=== PATIENT | female | born 1970 | race African-American/Black ===

== ENCOUNTER 2024-12-19 10:06 | Observation (INO) | payer SELFPAY ==
[2024-12-19 10:24] LABS: Absolute Lymphocytes (CBC) 1.9 K/uL (0.7-4.9); Hematocrit 42.1 % (36.0-45.0); Hemoglobin 13.7 g/dL (12.0-15.0); MCH 28.3 pg (27.0-35.0); MCHC 32.6 g/dL (32.0-36.0); MCV 86.9 fL (80-100); MPV 8.9 fL (7.6-11.3); Nucleated RBC Absolute Count 0.0 (0-0); Nucleated Red Blood Cells % 0.0 % (0-0); RBC Red Blood Cell Count 4.85 M/uL (3.86-4.86); White Blood Count 10.70 thou/uL (4.3-10.9)
[2024-12-19] MEDS ORDERED: ONDANSETRON 4 MG/2 ML VIAL ONE ×2 (10:25→10:58)
[2024-12-19] MEDS ORDERED: NA CHLORIDE 0.9% 1,000 ML ONE (10:25)
[2024-12-19] MEDS ORDERED: KETOROLAC 30 MG/ML INJ ONE (10:25)
[2024-12-19] MEDS ORDERED: MORPHINE 4 MG/ML SYR ONE ×3 (10:25→12:36)
[2024-12-19 10:45] LABS: ALT/SGPT 25 U/L (13-56); Albumin 4.3 g/dL (3.4-5.0); Albumin/Globulin Ratio 1.3 (1.1-1.8); Alkaline Phosphatase 76 U/L (45-117); Anion Gap 11.2 mEq/L (5.0-15.0); BUN Blood Urea Nitrogen 12 mg/dL (7-18); Globulin 3.3 g/dL (2.3-3.5); Glucose Level 113 mg/dL (74-106); Lipase 29 U/L (13-75); Potassium 3.2 mEq/L (3.5-5.1)
[2024-12-19 10:48] LABS: AST/SGOT < 10 U/L (15-37)
--- NOTE | 2024-12-19 11:10 | RAD REPORT ---
EXAMINATION: CT Abdomen Pelvis W Contrast CLINICAL INDICATION: Female, 54 years old. back pain;Abd pain TECHNIQUE: CT abdomen and pelvis was performed, after the administration of IV contrast, as per [facility] protocol. Axial, sagittal and coronal reconstructions were obtained. One or more of the following dose reduction techniques were used: Automated exposure control, adjustment of the mA and k V according to patient size, and iterative reconstruction. Unless otherwise specified, incidental findings do not require dedicated imaging follow-up. COMPARISON: No prior exam. FINDINGS: LOWER CHEST: The visualized lung bases are clear. LIVER: Normal in size and contour. No focal lesion. BILIARY SYSTEM: Marked distention of the gallbladder. Mild adjacent fat stranding at the neck and at the fundus. No other suspicious abnormalities. SPLEEN: Normal size. No focal lesion. PANCREAS: No mass, ductal dilation, or racheal-pancreatic fluid. ADRENALS: Normal; no mass. KIDNEYS: Normal size and contour. No hydronephrosis. URINARY BLADDER: Unremarkable. GASTROINTESTINAL TRACT: No evidence of free air, significant intra-abdominal free fluid, bowel obstru ction or abscess. APPENDIX: Normal appendix. LYMPH NODES: No lymphadenopathy. MUSCULOSKELETAL: No acute or suspicious osseous abnormality. ADDITIONAL FINDINGS: None. IMPRESSION: Marked distention of the gallbladder. Mild adjacent fat stranding at the neck and at the fundus. Plea se correlate clinically for acute cholecystitis, and consider additional evaluation by ultrasound if clinically appropriate.
[2024-12-19 12:16] LABS: Urine Microscopic Reflex YN NO UMIC
[2024-12-19] MEDS ORDERED: METOCLOPRAMIDE 10 MG/2mL INJ ONE (12:36)
--- NOTE | 2024-12-19 12:37 | RAD REPORT ---
EXAMINATION: US Abdomen Exam Limited CLINICAL HISTORY: HS MAIN N abnormal CT;Abd pain Bed Name: 5 COMPARISON: CT abdomen and pelvis same day TECHNIQUE: Limited upper abdominal grayscale and color flow sonographic images. FINDINGS: Gallbladder: Distended measuring 15 cm in long axis. Normal wall thickness, 2 mm. Echogenic 1.7 cm ca lculus with mild shadowing at the neck. Lobulated sludge versus small polyp near the fundus. Evaluation for sonographic Kramer's sign is limited as patient was medicated for pain. Bile ducts: No intrahepatic or extrahepatic biliary dilatation. Common bile duct measures 8 mm. Liver: Visualized portions of the liver demonstrate normal echogenicity with no suspicious findings. Fluid: No ascites. IMPRESSION: Distended gallbladder with sludge and 1.7 cm calculus near the neck. No other discrete sonographic fi ndings to suggest acute cholecystitis. Please correlate clinically. Prominent common bile duct up to 8 mm. Correlation with serum bilirubin levels is recommended.
--- NOTE | 2024-12-19 12:43 | EDPHYS ---
Physician Documentation [facility] Name: Vito Thomas Age: 54 yrs Sex: Female : 1970 Arrival Date: 12/19/2024 Time: 10:06 Bed 5 Private MD: ED Physician Earlene Dang HPI: 12/19 10:18 This 54 yrs old Female presents to ER via Unassigned with complaints of Low Back Pain. sp3 10:18 54-year-old female with history of lumbar disc disease, C-sections x 3, now presents to [facility] the ED with chief complaint low back pain rating around to the right lower quadrant. Symptoms been going on for the last 2 days now worsening. She is not on any pain medications and has not taken any kapx-iki-vghvtsc medications. She states she sees a chiropractor and [place]. No recent adjustments. She denies any other symptoms including fever, headache, neck pain, chest pain, shortness of breath, upper back pain, dysuria, urinary frequency, history of kidney stone, gross visualized hematuria, vomiting, diarrhea, PARIMUTUEL TICKET CHECKER symptoms, constipation, bloating, or any other signs or symptoms on ROS at this time.. 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 - Infectious Disease History:: Denies. - Social history:: Smoking status: unknown. ROS: 10:20 Constitutional: Negative for fever, chills, and weight loss, Eyes: Negative for injury, sp3 pain, redness, and discharge, ENT: Negative for injury, pain, and discharge, Neck: Negative for injury, pain, and swelling, Cardiovascular: Negative for chest pain, palpitations, and edema, Respiratory: Negative for shortness of breath, cough, wheezing, and pleuritic chest pain, : Negative for injury, bleeding, discharge, and swelling, MS/Extremity: Negative for injury and deformity, Skin: Negative for injury, rash, and discoloration, Neuro: Negative for headache, weakness, numbness, tingling, and seizure, Psych: Negative for depression, anxiety, suicide ideation, homicidal ideation, and hallucinations, Allergy/Immunology: Negative for hives, rash, and allergies, Endocrine: Negative for neck swelling, polydipsia, polyuria, polyphagia, and marked weight changes, 10:20 All other systems are negative, Exam: 10:21 Constitutional: This is a well developed, well nourished patient who is awake, alert, sp3 and in no acute distress. Head/Face: Normocephalic, atraumatic. Eyes: Pupils equal round and reactive to light, extra-ocular motions intact. Lids and lashes normal. Conjunctiva and sclera are non-icteric and not injected. Cornea within normal limits. Periorbital areas with no swelling, redness, or edema. Neck: Trachea midline, no thyromegaly or masses palpated, and no cervical lymphadenopathy. Supple, full range of motion without nuchal rigidity, or vertebral point tenderness. No Meningismus. Chest/axilla: Normal chest wall appearance and motion. Nontender with no deformity. No lesions are appreciated. Cardiovascular: Regular rate and rhythm with a normal S1 and S2. No gallops, murmurs, or rubs. Normal PMI, no JVD. No pulse deficits. Respiratory: Lungs have equal breath sounds bilaterally, clear to auscultation and percussion. No rales, rhonchi or wheezes noted. No increased work of breathing, no retractions or nasal flaring. Skin: Warm, dry with normal turgor. Normal color with no rashes, no lesions, and no evidence of cellulitis. MS/ Extremity: Pulses equal, no cyanosis. Neurovascular intact. Full, normal range of motion. Neuro: Awake and alert, GCS 15, oriented to person, place, time, and situation. Cranial nerves II-XII grossly intact. Motor strength 5/5 in all extremities. Sensory grossly intact. Cerebellar exam normal. Normal gait. Psych: Awake, alert, with orientation to person, place and time. Behavior, mood, and affect are within normal limits. 10:21 Back: Patient has pain to palpation in the lower musculature particular on the right side. No numbness or tingling distally and normal neurological exam distally bilateral lower extremities., 10:21 Abdomen/GI: Patient has pain to palpation right lower quadrant as well. No peritoneal sp3 signs, rebound or guarding., Vital Signs: 10:09 BP 150 / 114; Pulse 86; Resp 18 S; Temp 98(O); Pulse Ox 100% on R/A; Weight 106.59 kg aa5 (R); Height 5 ft. 9 in. (R); 11:03 BP 170 / 80; Pulse 82; Resp 18 S; Pulse Ox 98% on R/A; aa5 12:39 BP 155 / 88; Pulse 70; Resp 18 S; Pulse Ox 97% on R/A; Pain 7/10; aa5 14:54 BP 145 / 82; Pulse 86; Resp 17; Pulse Ox 100% ; ap3 10:09 Body Mass Index 34.70 (106.59 kg, 175.26 cm) aa5 12:39 Pain Scale: Adult aa5 MDM: 10:10 Medical Screening Exam initiated sp3 10:22 Data reviewed: vital signs, nurses notes, lab test result(s), radiologic studies. ED sp3 course: 54-year-old female with low back pain and right lower quadrant abdominal pain. Differential diagnosis includes musculoskeletal pain, lumbar radiculopathy/disc disease, appendicitis, adhesions, colitis, UTI/pyelonephritis spectrum, kidney stone/ureterolithiasis spectrum, PARIMUTUEL TICKET CHECKER pathology, among others. Workup will include CT scan of the abdomen pelvis with IV contrast, general labs, UA and treatment with morphine, ketorolac and ondansetron IV. Disposition pending workup and patient course.. 12:41 ED course: Ultrasound demonstrates 1.7 cm stone in the gallbladder neck coupled with sp3 sludge. LFTs are all normal. Will admit to hospitalist and Dr. Lopez to operate tomorrow after discussion with him and surgeon on-call.. 12/19 10:13 Order name: CBC with Diff; Complete Time: 11:28 sp3 12/19 10:13 Order name: CMP; Complete Time: 11:28 sp3 12/19 10:13 Order name: Lipase; Complete Time: 11:28 sp3 12/19 10:13 Order name: UA Rfx Leroy Cult if indicated; Complete Time: 12:20 sp3 12/19 13:43 Order name: CBC with Automated Diff EDMS 12/19 13:43 Order name: CBC with Automated Diff EDMS 12/19 13:43 Order name: CBC with Automated Diff EDMS 12/19 13:43 Order name: CBC with Automated Diff EDMS 12/19 13:43 Order name: Comprehensive Metabolic Panel EDMS 12/19 13:43 Order name: Comprehensive Metabolic Panel EDMS 12/19 13:43 Order name: Comprehensive Metabolic Panel EDMS 12/19 13:43 Order name: Comprehensive Metabolic Panel EDMS 12/19 13:43 Order name: Magnesium EDMS 12/19 13:43 Order name: Magnesium EDMS 12/19 13:43 Order name: Magnesium EDMS 12/19 13:43 Order name: Magnesium EDMS 12/19 13:43 Order name: Phosphorus EDMS 12/19 13:43 Order name: Phosphorus EDMS 12/19 13:43 Order name: Phosphorus EDMS 12/19 13:43 Order name: Phosphorus EDMS 12/19 13:57 Order name: PREGU eb 12/19 14:26 Order name: Test, Urine EDMS 12/19 10:13 Order name: CT Abd/Pelvis - IV Contrast Only; Complete Time: 11:28 sp3 12/19 11:29 Order name: US Abdomen Limited; Complete Time: 12:38 sp3 12/19 13:43 Order name: CONS Physician Consult EDMS 12/19 10:13 Order name: IV Saline Lock; Complete Time: 10:19 sp3 12/19 10:13 Order name: Labs collected and sent; Complete Time: 10:19 sp3 12/19 10:13 Order name: NPO; Complete Time: 10:18 sp3 12/19 11:30 Order name: Cath: Cath UA; Complete Time: 12:05 sp3 Administered Medications: 10:32 Drug: Ondansetron IVP 4 mg IVP once; over 2 minutes Route: IVP; Site: right antecubital;ap3 10:54 Follow up: Response: Pt vomited in CT aa5 10:32 Drug: NS 0.9% IV 1000 ml IV at 1 bolus Per protocol; to be given as a bolus over 60 ap3 minutes Route: IV; Rate: 1 bolus; Site: right antecubital; 14:53 Follow up: IV Status: Completed infusion ap3 10:33 Drug: TORadol - Ketorolac IVP 15 mg IVP once Route: IVP; Site: right antecubital; ap3 10:54 Follow up: Response: No adverse reaction aa5 10:33 Drug: morphine IVP or IV 4 mg IVP once over 4 mins Route: IVP; Infused Over: 4 mins; ap3 Site: right antecubital; 10:54 Follow up: Response: No adverse reaction aa5 11:03 Drug: morphine IVP or IV 4 mg IVP once over 4 mins Route: IVP; Infused Over: 4 mins; aa5 Site: right antecubital; 12:05 Follow up: Response: No adverse reaction; Pain is decreased ap3 11:03 Drug: Ondansetron IVP 4 mg IVP once; over 2 minutes Route: IVP; Site: right antecubital;aa5 12:06 Follow up: Response: No adverse reaction; Nausea is decreased ap3 12:40 Drug: metoCLOPramide IVP 10 mg IVP once; over 1 to 2 minutes Route: IVP; Site: right aa5 antecubital; 14:53 Follow up: Response: No adverse reaction ap3 12:40 Drug: morphine IVP or IV 4 mg IVP once over 4 mins Route: IVP; Infused Over: 4 mins; aa5 Site: right antecubital; 14:53 Follow up: Response: No adverse reaction; Pain is decreased ap3 13:47 Drug: Piperacillin-Tazobactam IVPB 3.375 grams IVPB once over 60 mins; (mix in NS 100 ap3 mL) Route: IVPB; Infused Over: 60 mins; Site: right antecubital; 14:53 Follow up: IV Status: Completed infusion ap3 Disposition Summary: 12/19/24 12:42 Hospitalization Ordered Notes: Hospitalization Status: Observation sp3 Provider: Didi Gregory sp3 [facility] sp3 Condition: Stable sp3 Problem: new sp3 Symptoms: have worsened sp3 Bed/Room Type: Standard sp3 Room Assignment: 228(12/19/24 13:50) eb Diagnosis - Biliary colic, abdominal pain, early cholecystitis sp3 Forms: - Medication Reconciliation Form sp3 - SBAR form sp3 - Leadership Thank You Letter sp3 Signatures: Dispatcher [employer] EDTory Kaufman RN RN aa5 Hoa Preston RN RN ap3 Charlene Chisholm Setul, MD MD sp3 Corrections: (The following items were deleted from the chart) 10:14 10:14 Abdomen Pelvis W Con+CT.RAD.BRZ ordered. EDMS EDMS 11:30 11:30 Abdomen Limited+US.RAD.BRZ ordered. EDMS EDMS 13:50 12:42 sp3 eb
--- NOTE | 2024-12-19 12:43 | ER ---
Nurse's Notes [facility] Name: Vito Thomas Age: 54 yrs Sex: Female : 1970 Arrival Date: 12/19/2024 Time: 10:06 Bed 5 Private MD: Diagnosis: Biliary colic, abdominal pain, early cholecystitis Presentation: 12/19 10:09 Chief complaint: EMS states: low back pain radiating down to RLQ that began today. Pt aa5 crying, moaning, and restless during triage. 10:09 Coronavirus screen: At this time, the client does not indicate any symptoms associated aa5 with coronavirus-19. Ebola Screen: Patient denies travel to an Ebola-affected area in the 21 days before illness onset. Initial Sepsis Screen: Does the patient meet any 2 criteria? No. Patient's initial sepsis screen is negative. Does the patient have a suspected source of infection? No. Patient's initial sepsis screen is negative. Risk Assessment: Do you want to hurt yourself or someone else? Patient reports no desire to harm self or others. Onset of symptoms was December 19, 2024. 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 - Infectious Disease History:: Denies. - Social history:: Smoking status: unknown. Screenin:10 [facility] ED Fall Risk Assessment (Adult) History of falling in the last 3 months, aa5 including since admission No falls in past 3 months (0 pts) Confusion or Disorientation No (0 pts) Intoxicated or Sedated No (0 pts) Impaired Gait No (0 pts) Mobility Assist Device Used No (0 pt) Altered Elimination No (0 pt) Score/Fall Risk Level 0 - 2 = Low Risk Oriented to surroundings, Maintained a safe environment, Educated pt \T\ family on fall prevention, incl call for assistance when getting out of bed, Assessed \T\ reinforced patient's understanding of fall precautions. Abuse screen: Denies threats or abuse. Nutritional screening: No deficits noted. Tuberculosis screening: No symptoms or risk factors identified. Assessment: 10:10 General: Appears uncomfortable, Behavior is cooperative, restless. Pain: Complains of aa5 pain in low back area Pain radiates to right lower quadrant Pain currently is 6 out of 10 on a pain scale. Quality of pain is described as sharp, Pain began this morning Is continuous, Aggravated by palpation to lower back. Neuro: Level of Consciousness is awake, alert, obeys commands, Oriented to person, place, time, situation. Cardiovascular: Patient's skin is warm and dry. Respiratory: Airway is patent Respiratory effort is even, unlabored, Respiratory pattern is regular, symmetrical. GI: Abdomen is round non-distended, Bowel sounds present X 4 quads. Abd is soft and non tender X 4 quads. Patient currently denies nausea, vomiting. : No signs and/or symptoms were reported regarding the genitourinary system. EENT: No signs and/or symptoms were reported regarding the EENT system. Derm: Skin is dry, Skin is normal, Skin temperature is warm. Musculoskeletal: Range of motion: intact in all extremities. 10:52 Reassessment: Pt in CT . aa5 11:00 General: Appears appears more comfortable/calm than previous assessment, pt moaning aa5 quietly. . Pain: Pain currently is 9 out of 10 on a pain scale. Neuro: Level of Consciousness is awake, alert, obeys commands, Oriented to person, place, time, situation. Respiratory: Airway is patent Respiratory effort is even, unlabored, Respiratory pattern is regular, symmetrical. GI: Reports nausea. Derm: Skin is dry, Skin is normal, Skin temperature is warm. 11:25 Reassessment: Patient states feeling better. Patient states symptoms have improved. aa5 Reassessment: Pt now resting in bed with eyes closed, respirations are even and unlabored. . 12:39 Reassessment: Pt c/o increased pain and nausea, MD was notified. . Pain: Pain currently aa5 is 7 out of 10 on a pain scale. 13:30 Reassessment: Patient states feeling better. Patient states symptoms have improved. aa5 Pain: Pain currently is 2 out of 10 on a pain scale. 13:30 Neuro: Level of Consciousness is awake, alert, obeys commands, Oriented to person, aa5 place, time, situation. Respiratory: Airway is patent Respiratory effort is even, unlabored, Respiratory pattern is regular, symmetrical. Derm: Skin is dry, Skin is normal, Skin temperature is warm. Vital Signs: 10:09 BP 150 / 114; Pulse 86; Resp 18 S; Temp 98(O); Pulse Ox 100% on R/A; Weight 106.59 kg aa5 (R); Height 5 ft. 9 in. (R); 11:03 BP 170 / 80; Pulse 82; Resp 18 S; Pulse Ox 98% on R/A; aa5 12:39 BP 155 / 88; Pulse 70; Resp 18 S; Pulse Ox 97% on R/A; Pain 7/10; aa5 14:54 BP 145 / 82; Pulse 86; Resp 17; Pulse Ox 100% ; ap3 10:09 Body Mass Index 34.70 (106.59 kg, 175.26 cm) aa5 12:39 Pain Scale: Adult aa5 ED Course: 10:09 Patient arrived in ED. eb 10:09 Earlene Dang MD is Attending Physician. sp3 10:09 Arm band placed on Patient placed in an exam room, on a stretcher. aa5 10:09 Patient has correct armband on for positive identification. Bed in low position. Call aa5 light in reach. Side rails up X2. Pulse ox on. NIBP on. 10:18 Tory Dale, RN is Primary Nurse. aa5 10:19 Initial lab(s) drawn, by tx, sent to lab. Inserted saline lock: 22 gauge in left ap3 antecubital area, using aseptic technique. Blood collected. 10:22 Triage completed. aa5 10:49 CT Abd/Pelvis - IV Contrast Only In Process Unspecified. EDMS 10:53 No provider procedures requiring assistance completed. aa5 12:25 US Abdomen Limited In Process Unspecified. EDMS 12:42 Didi Gregory MD is Hospitalizing Provider. sp3 14:54 Provided Education on: need for admission . ap3 14:54 Patient admitted, IV remains in place. ap3 Administered Medications: 10:32 Drug: Ondansetron IVP 4 mg IVP once; over 2 minutes Route: IVP; Site: right antecubital;ap3 10:54 Follow up: Response: Pt vomited in CT aa5 10:32 Drug: NS 0.9% IV 1000 ml IV at 1 bolus Per protocol; to be given as a bolus over 60 ap3 minutes Route: IV; Rate: 1 bolus; Site: right antecubital; 14:53 Follow up: IV Status: Completed infusion ap3 10:33 Drug: TORadol - Ketorolac IVP 15 mg IVP once Route: IVP; Site: right antecubital; ap3 10:54 Follow up: Response: No adverse reaction aa5 10:33 Drug: morphine IVP or IV 4 mg IVP once over 4 mins Route: IVP; Infused Over: 4 mins; ap3 Site: right antecubital; 10:54 Follow up: Response: No adverse reaction aa5 11:03 Drug: morphine IVP or IV 4 mg IVP once over 4 mins Route: IVP; Infused Over: 4 mins; aa5 Site: right antecubital; 12:05 Follow up: Response: No adverse reaction; Pain is decreased ap3 11:03 Drug: Ondansetron IVP 4 mg IVP once; over 2 minutes Route: IVP; Site: right antecubital;aa5 12:06 Follow up: Response: No adverse reaction; Nausea is decreased ap3 12:40 Drug: metoCLOPramide IVP 10 mg IVP once; over 1 to 2 minutes Route: IVP; Site: right aa5 antecubital; 14:53 Follow up: Response: No adverse reaction ap3 12:40 Drug: morphine IVP or IV 4 mg IVP once over 4 mins Route: IVP; Infused Over: 4 mins; aa5 Site: right antecubital; 14:53 Follow up: Response: No adverse reaction; Pain is decreased ap3 13:47 Drug: Piperacillin-Tazobactam IVPB 3.375 grams IVPB once over 60 mins; (mix in NS 100 ap3 mL) Route: IVPB; Infused Over: 60 mins; Site: right antecubital; 14:53 Follow up: IV Status: Completed infusion ap3 Medication: 10:51 VIS not applicable for this client. aa5 Outcome: 12:42 Decision to Hospitalize by Provider. sp3 14:54 Admitted to Med/surg ap3 14:54 Condition: good 14:54 Discharge instructions given to patient, Instructed on the need for admit, 14:55 Patient left the ED. ap3 Signatures: Dispatcher [employer] EDTory Kaufman RN RN aa5 Hoa Preston RN RN ap3 Charlene Chisholm Setul, MD MD sp3
[2024-12-19] MEDS ORDERED: ACETAMINOPHEN 325 MG TABLET PO PRN (13:34)
[2024-12-19] MEDS ORDERED: NA CHLORIDE 0.9% 100 ML ONE (13:39)
[2024-12-19] MEDS ORDERED: PIPERACIL/TAZO 3.375 GM VIAL IV ONE (13:40)
--- NOTE | 2024-12-19 14:07 | CON ---
Date of Consultation: 12/19/2024 Reason For Consultation: Abdominal pain. History Of Present Illness: The patient is a 54-year-old female who comes in with acute onset of upp er abdominal right-sided pain going to the back associated with nausea and vomiting. No heartburn, b ut there is bloating and belching. No diarrhea. No blood per rectum. She does have some constipati on. No dysuria or hematuria. No sore throat or runny nose. Occasional cough. No fever. No chills . No chest pain. Review of Systems: Otherwise, unremarkable. Pain started after dinner last night. Past Medical History: Chronic back pain. Past Surgical History: x3. Allergies: NO ALLERGIES. Social History: The patient has smoked in the past, does not currently, and denies drinking alcohol. Physical Examination: Vital Signs: Stable. She is afebrile. General: She is awake, alert, oriented x3. Head and Neck: No evidence of icterus. No neck masses. No JVD. Throat clear. Neck is supple. Chest: Clear. Heart: S1, S2. Abdomen: Soft, nondistended. Positive bowel sounds. Positive right upper quadrant tenderness with minimal rebound. No rigidity or guarding. Extremities: Adequately perfused. Nontender. Neuro: Nonfocal. Imaging: Ultrasound of the abdomen reviewed, shows a distended gallbladder with sludge and a 1.7 cm calculus near the neck. Common bile duct is [address] shows marked distention of the gallb ladder, mild adjacent fat stranding at the neck and at the fundus, consider ultrasound. Laboratory Data: White count is 10.7 with a left shift. LFTs, amylase, lipase are within normal [place] its. Assessment: Acute cholecystitis and cholelithiasis. Plan: Admit. NPO after midnight. Clear liquids today. IV antibiotics and to the OR for laparoscop ic cholecystectomy, possible open. The patient understands risks, benefits, alternatives, and agrees to procedure. /MODL Voice ID: [id number] Report ID: [id number]
[2024-12-19 15:11] VITALS: BMI 34.7
[2024-12-19] MEDS: NA CHLORIDE 0.9% 1,000 ML IV SCH (15:19)
[2024-12-19] MEDS: MORPHINE 2 MG/ML SYR IV PRN (15:20)
[2024-12-19] MEDS: PIPER TAZO 3.375 GM in NA CHLORIDE 0.9% 100 ML IV SCH (17:00)
[2024-12-19] MEDS: ONDANSETRON 4 MG/2 ML VIAL IV PRN (17:39)
--- NOTE | 2024-12-19 18:02 | P.HP ---
Certification for Inpatient Patient admitted to: Observation With expected LOS: <2 Midnights Patient will require the following post-hospital care: None Practitioner: I am a practitioner with admitting privileges, knowledge of patient current condition, hospital course, and medical plan of care. Services: Services provided to patient in accordance with Admission requirements found in Title 42 Section 412.3 of the Code of Federal Regulations <Ana Gayle - Last Filed: 12/19/24 17:52> Patient History Date of Service: 12/19/24 Reason for admission: Acute cholecystitis History of Present Illness: Vito Thomas is a 54 year old female with pmhx herniated disc who presents to the ED with lower back pain radiating to abdominal pain and intractable N/V for 2 days. Laboratory evaluation unremarkable. Ultrasound abdomen reports "Distended gallbladder with sludge and 1.7 cm calculus near the neck. No other discrete sonographic findings to suggest acute cholecystitis. Please correlate clinically. Prominent common bile duct up to 8 mm" CT abdomen pelvis reports"Marked distention of the gallbladder. Mild adjacent fat stranding at the neck and at the fundus. Please correlate clinically for acute cholecystitis." Vito will be admitted to the hospitalist service for further evaluation and treatment of acute cholecystitis. Dr. Lopez consulted. - Past Medical/Surgical History Has patient received pneumonia vaccine in the past: Yes -: Herniated disc -: section - Family History Family History: Reviewed- Non-Contributory - Social History Smoking Status: Former smoker Alcohol use: No CD- Drugs: No Caffeine use: Yes Place of Residence: Home <Ana Gayle - Last Filed: 12/19/24 17:52> Date of Service: 12/20/24 <Didi Gregory - Last Filed: 12/20/24 06:43> Allergies No Known Allergies Allergy (Unverified 12/19/24 15:10) Home Medications: NK [No Home Meds] 12/19/24 Review of Systems Other: Per HPI <Ana Gayle - Last Filed: 12/19/24 17:52> Physical Examination - Vital Signs Temperature: 98 F Blood Pressure: 145/82 Pulse: 86 Respirations: 17 Pulse Ox (%): 96 - Physical Exam General: Alert, In no apparent distress, Oriented x3 HEENT: Atraumatic, Normocephalic Neck: Supple, 2+ carotid pulse no bruit Respiratory: Clear to auscultation bilaterally, Normal air movement Cardiovascular: Normal pulses, Normal S1 S2 Gastrointestinal: Normal bowel sounds, Tenderness Musculoskeletal: No clubbing Integumentary: No rashes Neurological: Normal speech, Normal tone - Studies Laboratory Data (last 24 hrs) 12/19/24 12/19/24 10:18 10:18 WBC 10.70 Hgb 13.7 Hct 42.1 Plt Count 245 Sodium 139 Potassium 3.2 L BUN 12 Creatinine 0.94 Glucose 113 H Total Bilirubin 0.4 AST < 10 L ALT 25 Alkaline Phosphatase 76 Lipase 29 <Ana Gayle - Last Filed: 12/19/24 17:52> - Studies Laboratory Data (last 24 hrs) 12/19/24 12/19/24 10:18 10:18 WBC 10.70 Hgb 13.7 Hct 42.1 Plt Count 245 Sodium 139 Potassium 3.2 L BUN 12 Creatinine 0.94 Glucose 113 H Total Bilirubin 0.4 AST < 10 L ALT 25 Alkaline Phosphatase 76 Lipase 29 <Didi Gregory - Last Filed: 12/20/24 06:43> Assessment and Plan - Plan Assessment and plan Acute cholecystitis Abdominal pain with nausea vomiting -Dr. Jessica urrutia - Ferdinand - Zofran - Pain control - Gentle IV fluid -CLD now and n.p.o. in the a.m. for surgical procedure Hypokalemia -Potassium 3.2 -Monitor and replace as needed Back pain -Continue home medications as appropriate DVT PPx SCDs Full code LOS 24-hour OBS Discharge Plan: Home Plan to discharge in: 24 Hours - Advance Directives Does patient have a Living Will: No Does patient have a Durable POA for Healthcare: Yes Time Spent Managing Pts Care (In Minutes): 65 <Ana Gayle - Last Filed: 12/19/24 17:52> Physician Review: Patient Assessed, Agree with Above Assessment and Plan <Didi Gregory - Last Filed: 12/20/24 06:43>
[2024-12-19] MEDS: HYDROCODONE/APAP 10/325 TAB PO PRN (18:08)
[2024-12-20] MEDS: PIPER TAZO 3.375 GM in NA CHLORIDE 0.9% 100 ML IV SCH (00:01)
[2024-12-20 06:00] LABS: Absolute Lymphocytes (CBC) 1.7 K/uL (0.7-4.9); Hematocrit 38.3 % (36.0-45.0); Hemoglobin 12.8 g/dL (12.0-15.0); MCH 28.7 pg (27.0-35.0); MCHC 33.4 g/dL (32.0-36.0); MCV 85.8 fL (80-100); MPV 8.9 fL (7.6-11.3); Nucleated RBC Absolute Count 0.0 (0-0); Nucleated Red Blood Cells % 0.0 % (0-0); RBC Red Blood Cell Count 4.46 M/uL (3.86-4.86); White Blood Count 10.20 thou/uL (4.3-10.9)
[2024-12-20 06:20] LABS: ALT/SGPT 35.0 U/L (13-56); AST/SGOT 18.0 U/L (15-37); Albumin 3.2 g/dL (3.4-5.0); Albumin/Globulin Ratio 0.9 (1.1-1.8); Alkaline Phosphatase 65.0 U/L (45-117); Anion Gap 7.6 mEq/L (5.0-15.0); BUN Blood Urea Nitrogen 7.0 mg/dL (7-18); Bilirubin Indirect, Calculated 0.5 mg/dL (0.2-0.8); Globulin 3.4 g/dL (2.3-3.5); Glucose Level 108.0 mg/dL (74-106); Magnesium 1.9 mg/dL (1.6-2.4); Potassium 3.6 mEq/L (3.5-5.1)
[2024-12-20] MEDS ORDERED: MIDAZOLAM HCL 2 MG/2 ML INJ ONE (09:21)
[2024-12-20] MEDS ORDERED: ROCURONIUM 50 MG/5 ML VIAL IV ONE (09:21)
[2024-12-20] MEDS ORDERED: FENTANYL CITR 100 MCG/2 ML ONE (09:21)
[2024-12-20] MEDS ORDERED: ONDANSETRON 4 MG/2 ML VIAL ONE (09:25)
[2024-12-20] MEDS ORDERED: KETOROLAC 30 MG/ML INJ ONE (09:25)
[2024-12-20] MEDS ORDERED: GLYCOPYRROLATE 0.2 MG/ML SYR ONE (09:25)
[2024-12-20] MEDS: BUPIVACAINE 0.5% PF 10 ML VIAL ONE (11:03)
[2024-12-20] MEDS: NA CHLORIDE 0.9% 1,000 ML ONE (11:58)
--- NOTE | 2024-12-20 12:15 | P.OP ---
Date of Service: 12/20/24 Preop diagnosis: Acute cholecystitis and cholelithiasis Postop diagnosis: Same with extensive adhesions Procedure performed: Laparoscopic cholecystectomy and lysis of adhesions Surgeon: Emile Lopez MD Printed Circuit Board Reworker: Angelica AMLIK Estimated blood loss: Minimal Specimen: Gallbladder Findings: As above Anesthesia: General Complications: None Drains: None Fluids and blood products: Nonapplicable Disposition: Recovery room Operative note: Patient brought to the OR and placed in the supine position. General anesthesia began. Patient prepped and draped in the usual sterile fashion. Marcaine 0.5% infiltrated locally. 15 blade used to make approximately a 2 cm supraumbilical midline incision. Subcutaneous tissue divi ded and bleeding controlled cautery. Fascia identified and divided. #1 Vicryl stay suture placed. Peritoneal cavity entered with sharp and blunt dissection. 12 mm trocar placed into the peritoneal cavity under direct vision. Pneumoperitoneum established. Then three 5 mm trocars placed under direct vision. 1 trocar placed in the epigastric region just to the right of midline. 2 trocars placed in the right subcostal region. Laparoscopy revealed extensive adhesions. LigaSure utilized for approximately 20 minutes to take down all the omental adhesions that were present on the gallbladde. After removal of the adhesions, the gallbladder was greatly distended and it was aspirated. Then the fundus identified and retracted superiorly. Infundibulum identified and retracted inferolaterally. Cystic duct and cystic artery clearly identified with blunt dissection. Clips placed in both structures divided. Gallbladder removed from the liver bed with utilizing cautery. Bleeding in the liver bed controlled with cautery. Gallbladder was removed through the umbilicus via Endo Catch bag. The fascial incision had to be extended in order to allow for this large gallbladder with bunch of stones in the to be removed safely. Then pneumoperitoneum reestablished. Right upper quadrant irrigated. Effluent clear. There is no evidence of bleeding or bile leakage appreciated. All trocars removed under direct vision. #1 Vicryl used to close the fascial defect. Subcutaneous wound irrigated and bleeding controlled cautery. 3-0 chromic used to approximate subcutaneous tissue and close skin. Sterile dressing applied. Patient awakened and taken to recovery room in good general condition. CC:
[2024-12-20] MEDS: PROMETHAZINE INJ 25 MG/ML AMP ONE (12:33)
--- NOTE | 2024-12-20 14:15 | P.PN ---
Date of Service: 12/20/24 Subjective: Resting comfortably in bed after surgery. No acute complaints. Her abdominal pain has improved Physical Examination - Vital Signs Temperature: 98 F Blood Pressure: 145/82 Pulse: 86 Respirations: 17 Pulse Ox (%): 96 - Physical Exam General: Alert, In no apparent distress, Oriented x3 HEENT: Atraumatic, Normocephalic Neck: Supple, 2+ carotid pulse no bruit Respiratory: Clear to auscultation bilaterally, Normal air movement Cardiovascular: Normal pulses, Normal S1 S2 Gastrointestinal: Normal bowel sounds, Tenderness Musculoskeletal: No clubbing Integumentary: No rashes Neurological: Normal speech, Normal tone - Studies Laboratory Data (last 24 hrs) 12/19/24 12/19/24 10:18 10:18 WBC 10.70 Hgb 13.7 Hct 42.1 Plt Count 245 Sodium 139 Potassium 3.2 L BUN 12 Creatinine 0.94 Glucose 113 H Total Bilirubin 0.4 AST < 10 L ALT 25 Alkaline Phosphatase 76 Lipase 29 - Studies Laboratory Data (last 24 hrs) 12/19/24 12/19/24 10:18 10:18 WBC 10.70 Hgb 13.7 Hct 42.1 Plt Count 245 Sodium 139 Potassium 3.2 L BUN 12 Creatinine 0.94 Glucose 113 H Total Bilirubin 0.4 AST < 10 L ALT 25 Alkaline Phosphatase 76 Lipase 29 Assessment and Plan - Plan Assessment and plan Acute cholecystitis Abdominal pain with nausea vomiting - Dr. Lopez consulted - s/p laparoscopic cholecystectomy with lysis of adhesions, continue Zosyn - Zofran - Pain control - Advance diet as tolerated Hypokalemia -Potassium 3.2 -Monitor and replace as needed Back pain -Continue home medications as appropriate DVT PPx SCDs Full code LOS 24-hour OBS Discharge Plan: Home Plan to discharge in: 24 Hours - Advance Directives Does patient have a Living Will: No Does patient have a Durable POA for Healthcare: Yes Time spent on the encounter, including patient evaluation, history taking, physical exam, medical decision making, coordination of care, and documentation, was 35 minutes. Time includes direct [id number] interaction with the patient and indirect time spent reviewing records, ordering tests, and discussing the care plan.
[2024-12-20] MEDS: HYDROMORPHONE HCL 1 MG/ML INJ IV PRN (22:40)
[2024-12-21 07:17] LABS: Absolute Lymphocytes (CBC) 1.6 K/uL (0.7-4.9); Hematocrit 35.5 % (36.0-45.0); Hemoglobin 11.7 g/dL (12.0-15.0); MCH 28.7 pg (27.0-35.0); MCHC 32.9 g/dL (32.0-36.0); MCV 87.1 fL (80-100); MPV 9.3 fL (7.6-11.3); Nucleated RBC Absolute Count 0.0 (0-0); Nucleated Red Blood Cells % 0.0 % (0-0); RBC Red Blood Cell Count 4.08 M/uL (3.86-4.86); White Blood Count 9.70 thou/uL (4.3-10.9)
[2024-12-21 07:20] LABS: Anion Gap 5.6 mEq/L (5.0-15.0); BUN Blood Urea Nitrogen 9.0 mg/dL (7-18); Glucose Level 111.0 mg/dL (74-106); Magnesium 2.1 mg/dL (1.6-2.4); Potassium 3.6 mEq/L (3.5-5.1)
[2024-12-21] MEDS: POTASSIUM 25 MEQ EFFERV TAB PO ONE (08:30)
[2024-12-21 09:42] VITALS: O2SAT 96
--- NOTE | 2024-12-21 11:43 | PN ---
Date of Progress Note: 12/21/2024 Subjective: The patient is awake, alert. No complaint. Objective: Vital Signs: Stable. Afebrile. Abdomen: Benign. Laboratory Data: Reviewed. Assessment: Status post laparoscopic cholecystectomy. Recommendation: The patient cleared from Surgery standpoint for discharge. Discharge instructions g iven and discussed with the Hospitalist team. The patient will follow up with me in a week. /MODL Voice ID: [id number] Report ID: [id number]
--- NOTE | 2024-12-21 11:57 | P.DS ---
Admission Date: 12/19/24 Discharge Date: 12/21/24 Reason for Admission: Acute cholecystitis Brief History of Present Illness: Vito Thomas is a 54 year old female with pmhx herniated disc who presents to the ED with lower back pain radiating to abdominal pain and intractable N/V for 2 days. Laboratory evaluation unremarkable. Ultrasound abdomen reports "Distended gallbladder with sludge and 1.7 cm calculus near the neck. No other discrete sonographic findings to suggest acute cholecystitis. Please correlate clinically. Prominent common bile duct up to [address] abdomen pelvis reports"Marked distention of the gallbladder. Mild adjacent fat stranding at the neck and at the fundus. Please correlate clinically for acute cholecystitis." Vito will be admitted to the hospitalist service for further evaluation and treatment of acute cholecystitis. Dr. Lopez consulted. Assessment and plan Hospital Course: Problem List Acute cholecystitis Abdominal pain with nausea vomiting Hypokalemia Back pain Patient was admitted to the hospital for acute cholecystitis. She underwent laparoscopic cholecystectomy on 12/20 and has been doing well postoperatively. She is stable for discharge and outpatient follow-up with general surgery in 1 week, prescriptions for antibiotics and pain medications to be sent to her pharmacy [facility] in [place]. Home medications to be continued as taken previously <Db Robison - Last Filed: 12/21/24 11:56> Admission Date: 12/19/24 Discharge Date: 12/21/24 <Didi Gregory - Last Filed: 12/21/24 15:35> Disposition: ROUTINE DISCHARGE Discharge Condition: GOOD Vital Signs/Physical Exam: Temp Pulse Resp BP Pulse Ox 97.9 F 73 18 127/77 97 12/21/24 08:00 12/21/24 08:00 12/21/24 08:00 12/21/24 08:00 12/21/24 08:00 General: Alert, In no apparent distress, Oriented x3 HEENT: Atraumatic, PERRLA Neck: Supple, JVD not distended Respiratory: Clear to auscultation bilaterally, Normal air movement Cardiovascular: Regular rate/rhythm, Normal S1 S2 Gastrointestinal: Normal bowel sounds, No tenderness Musculoskeletal: No tenderness Integumentary: No rashes Neurological: Normal speech, Normal affect Laboratory Data at Discharge: WBC 9.70 thou/uL (4.3-10.9) 12/21/24 06:15 Hgb 11.7 g/dL (12.0-15.0) L D 12/21/24 06:15 Hct 35.5 % (36.0-45.0) L 12/21/24 06:15 Plt Count 193 thou/uL (152-406) 12/21/24 06:15 Sodium 140 mEq/L (136-145) 12/21/24 06:15 Potassium 3.6 mEq/L (3.5-5.1) 12/21/24 06:15 BUN 9 mg/dL (7-18) 12/21/24 06:15 Creatinine 0.92 mg/dL (0.55-1.02) 12/21/24 06:15 Glucose 111 mg/dL (74-106) H 12/21/24 06:15 Phosphorus 2.6 mg/dL (2.5-4.9) 12/21/24 06:15 Magnesium 2.1 mg/dL (1.6-2.4) 12/21/24 06:15 Total Bilirubin 0.7 mg/dL (0.2-1.0) 12/20/24 05:37 AST 18 U/L (15-37) 12/20/24 05:37 ALT 35 U/L (13-56) 12/20/24 05:37 Alkaline Phosphatase 65 U/L (45-117) 12/20/24 05:37 Lipase 29 U/L (13-75) 12/19/24 10:18 <Db Robison - Last Filed: 12/21/24 11:56> Vital Signs/Physical Exam: Temp Pulse Resp BP Pulse Ox 98.0 F 72 18 154/83 H 96 12/21/24 12:00 12/21/24 12:00 12/21/24 12:00 12/21/24 12:00 12/21/24 12:00 Laboratory Data at Discharge: WBC 9.70 thou/uL (4.3-10.9) 12/21/24 06:15 Hgb 11.7 g/dL (12.0-15.0) L D 12/21/24 06:15 Hct 35.5 % (36.0-45.0) L 12/21/24 06:15 Plt Count 193 thou/uL (152-406) 12/21/24 06:15 Sodium 140 mEq/L (136-145) 12/21/24 06:15 Potassium 3.6 mEq/L (3.5-5.1) 12/21/24 06:15 BUN 9 mg/dL (7-18) 12/21/24 06:15 Creatinine 0.92 mg/dL (0.55-1.02) 12/21/24 06:15 Glucose 111 mg/dL (74-106) H 12/21/24 06:15 Phosphorus 2.6 mg/dL (2.5-4.9) 12/21/24 06:15 Magnesium 2.1 mg/dL (1.6-2.4) 12/21/24 06:15 Total Bilirubin 0.7 mg/dL (0.2-1.0) 12/20/24 05:37 AST 18 U/L (15-37) 12/20/24 05:37 ALT 35 U/L (13-56) 12/20/24 05:37 Alkaline Phosphatase 65 U/L (45-117) 12/20/24 05:37 Lipase 29 U/L (13-75) 12/19/24 10:18 <Didi Gregory - Last Filed: 12/21/24 15:35> Diet: [place] Activity: No lifting more than 10 lbs Time spent managing pt's care (in minutes): 36 <Db Robison - Last Filed: 12/21/24 11:56> Physician Review: Patient Assessed, Agree with Above Assessment and Plan <Didi Gregory - Last Filed: 12/21/24 15:35> Home Medications: Amox/Clavulanate [Augmentin 875-125 Tab] 875 mg PO BID 7 Days #14 tab 12/21/24 Hydrocodone 10/APAP 325 [[place] 10/325*] 1 tab PO Q8H PRN 5 Days #15 tab 12/21/24 New Medications: Amox/Clavulanate [Augmentin 875-125 Tab] 875 mg PO BID 7 Days #14 tab Hydrocodone 10/APAP 325 [[place] 10/325*] 1 tab PO Q8H PRN 5 Days #15 tab PRN Reason: Pain Scale 5-7 (Moderate) Physician Discharge Instructions: Cleared by Dr Lopez for discharge. No heavy lifting, no strenuous activity Follow up with Dr Lopez in 1 week, call for appointment Use incentive spirometry as directed May remove dressing and shower in the morning Leave steri strips on until they fall off on their own Activity as tolerated See diet handout included in discharge packet Patient was admitted to the hospital for acute cholecystitis. She underwent laparoscopic cholecystectomy on 12/20 and has been doing well postoperatively. She is stable for discharge and outpatient follow-up with general surgery in 1 week, prescriptions for antibiotics and pain medications to be sent to her pharmacy [facility] in [place]. Home medications to be continued as taken previously Followup: NONE,NONE [Primary Care Provider] - Emile Lopez MD [ACTIVE - CAN ADMIT] - 1 Week
[2024-12-21 13:01] VITALS: BP 154/83; TEMP 98
== END 2024-12-21 13:51 | disposition home or self-care (01) ==
LOC: ER 10:06 → ERHOLD 13:34 → INTOOBSV 13:34 → 2ND 14:30
PROVIDERS: ADMIT Family Medicine; ATTEND Family Medicine
PROC: 0DNU4ZZ Release Omentum, Percutaneous Endoscopic Approach (ICD-10-PCS; 2024-12-20)
PROC: 0FT44ZZ Resection of Gallbladder, Percutaneous Endoscopic Approach (ICD-10-PCS; principal; 2024-12-20 09:30)
DX: K80.00 Calculus of gallbladder with acute cholecystitis without obstruction (principal); K66.0 Peritoneal adhesions (postprocedural) (postinfection); R10.9 Unspecified abdominal pain; R11.2 Nausea with vomiting, unspecified; E87.6 Hypokalemia; M54.9 Dorsalgia, unspecified; M51.26 Other intervertebral disc displacement, lumbar region
CPT/HCPCS: 36415; 74177; 76705; 80048; 80053; 81003; 81025; 82248; 83690; 83735; 84100; 85025; 88304; 93005; 94010; 96361; 96365; 96375; 99285; G0378; J1100; J1171; J2250; J2270; J2405; J2543; J2550; J2704; J2765; J3010; J7030; Q9967